=== PATIENT | female | born 1985 | race Caucasian/White ===

== ENCOUNTER 2019-08-07 12:27 | Emergency (ER) | payer OTHER, MEDICAID, SELFPAY ==
[2019-08-07 12:32] VITALS: BP 109/73; PULSE 83; RESP 18; TEMP 36.5; O2SAT 96
--- NOTE | 2019-08-07 12:37 | DI.RAD.S_ITS ---
PROCEDURE: XR CHEST 2V INDICATIONS: chest pain TECHNIQUE: 2 views of the chest were acquired. COMPARISON: None. FINDINGS: Surgical changes and devices: None. Lungs and pleura: Lungs are clear. No pleural effusions or pneumothorax. Mediastinum: Mediastinal contours are normal. Heart size is normal. Bones and chest wall: No suspicious bony abnormalities. Soft tissues appear unremarkable. IMPRESSION: Negative chest. No acute cardiopulmonary process is evident. Dictated by: Orlando Hampton M.D. on 08/07/2019 at 12:05 Approved by: Orlando Hampton M.D. on 08/07/2019 at 12:05
[2019-08-07 13:02] LABS: Add Manual Diff / Slide Review NO; Basophils Absolute Auto 0 /uL (0-100); Basophils Percent Auto 0.5 % (0-2); Eosinophils Absolute Auto 400 /uL (0-450); Eosinophils Percent Auto 5.2 % (2-4); Hematocrit 39.1 % (36-46); Hemoglobin 13.2 g/dL (12.0-16.0); Lymphocytes Absolute Auto 3100 /uL (1100-4500); Lymphocytes Percent Auto 41.4 % (25-40); Mean Corpuscular HGB Conc 33.8 % (30-36); Mean Corpuscular Hemoglobin 29.7 PG (26-34); Mean Corpuscular Volume 87.9 fL (80-100); Monocytes Absolute Auto 600 /uL (0-900); Monocytes Percent Auto 7.6 % (3-14); Neutrophils Absolute Auto 3400 /uL (1500-7000); Neutrophils Percent Auto 45.3 % (50-75); Platelet Count 284 X10^3/uL (150-400); Red Blood Cell Count 4.45 X10^6/uL (4.0-5.2); White Blood Cell Count 7.5 X10^3/uL (4.5-11.0)
[2019-08-07 13:07] LABS: INR 0.9 (0.9-1.3); Prothrombin Time 10.8 SECONDS (10.1-12.7)
[2019-08-07 13:10] LABS: PTT Partial Thromboplastin Tim 30 SECONDS (26.4-36.2)
[2019-08-07 13:12] LABS: Alanine Aminotransferase 40 IU/L (<35); Albumin 4.2 g/dL (3.5-5.0); Albumin Globulin Ratio 1.4 (1.0-2.8); Alkaline Phosphatase 75 U/L (38-126); Aspartate Aminotransferase 41 IU/L (14-36); Bilirubin Total 0.3 mg/dL (0.2-1.3); Blood Urea Nitrogen 16 mg/dL (7-17); Calcium 9.8 mg/dL (8.4-10.2); Carbon Dioxide 29 mmol/L (22-32); Chloride 98 mmol/L (98-107); Creatine Kinase 102 U/L (30-135); Estimated Glomerular Filt Rate > 60.0 mL/min (>60); Glucose 127 mg/dL (70-100); HEMOLYSIS < 15 (0-50); Lipase 150 U/L (23-300); Magnesium 1.7 mg/dL (1.6-2.3); Potassium 3.6 mmol/L (3.4-5.1); Sodium 137 mmol/L (137-145); Total Protein 7.2 g/dL (6.3-8.2)
[2019-08-07 13:24] LABS: Troponin I < 0.012 ng/mL (0.01-0.034)
[2019-08-07 13:27] LABS: CKMB % Relative Index 1.4 % (1.5-5.0); Creatine Kinase MB 1.45 ng/mL (<2.37)
--- NOTE | 2019-08-07 14:12 | ED.CHESTPAIN ---
HPI - Chest Pain General Chief Complaint: Chest Pain Stated Complaint: High heart rate Time Seen by Provider: 08/07/19 14:06 Source: patient Mode of arrival: Ambulatory Limitations: no limitations History of Present Illness HPI narrative: Patient is a 33-year-old female who presents with heart palpitations and dizziness. 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 She felt like her heart was pounding. She does have a history of hypertension she was able to take her blood pressure which was normal but also noted that her heart rate was about 125. She also feels nauseous. She denies any shortness of breath she did not pass out. She was feeling fine yesterday. She has no fever or cough. She still doesn't feel quite right but blood pressure and heart rate are within normal limits MD complaint: chest pain Duration: constant Onset: during exertion Related Data Home Medications Medication Instructions Recorded Confirmed diclofenac sodium 75 mg PO BID PRN 08/07/19 08/07/19 hydrochlorothiazide 25 mg PO DAILY 08/07/19 08/07/19 lisinopril 40 mg PO DAILY 08/07/19 08/07/19 methocarbamol 500 mg PO TID PRN 08/07/19 08/07/19 prazosin 1 mg PO BEDTIME 08/07/19 08/07/19 Allergies Allergy/AdvReac Type Severity Reaction Status Date / Time No Known Drug Allergies Allergy Verified 08/07/19 12:36 Review of Systems Review of Systems Narrative: GENERAL: Denies chills, fatigue, malaise, fever, sweats, travel HEENT: Denies sinus pain, ear pain, sore throat, difficulty swallowing, neck pain RESPIRATORY: Denies dyspnea, cough, wheezing, hemoptysis, sputum. CARDIOVASCULAR: See HPI GASTROINTESTINAL: Denies nausea, vomiting, abdominal pain, diarrhea, constipation, melena. : Denies dysuria, frequency, incontinence, hematuria, urinary retention, flank pain. MUSCULOSKELETAL: Denies weakness, joint pain, or bony pain SKIN: No rash, no erythema, no pruritus NEUROLOGIC: Denies weakness, dizziness, headache, numbness, change in speech, confusion PSYCHIATRIC: No concerning psychosocial issues. 12 point review of systems is negative except for those stated above and HPI Patient History Medical History Asthma (Acute) Hypertension (Acute) Social History Smoking Status: Former smoker Smoking Status: Former smoker alcohol intake frequency: holidays/special occasions only Substance Use Type: does not use Exam Initial Vital Signs Initial Vital Signs: Vital Signs Temperature 97.7 F 08/07/19 12:32 Pulse Rate 83 08/07/19 12:32 Respiratory Rate 18 08/07/19 12:32 Blood Pressure 109/73 08/07/19 12:32 Pulse Oximetry 96 08/07/19 12:32 GENERAL: Overweight female no acute distress HEENT: Head atraumatic,EOMI, pupils reactive, face symmetric, moist mucous membranes CARDIOVASCULAR: Regular rate and rhythm without murmurs, rubs or gallops. RESPIRATORY: Breath sounds equal bilaterally, no wheezes rales or rhonchi. ABDOMEN: Soft, nontender. Normoactive bowel sounds all 4 quadrants. No guarding or rebound. EXTREMITIES: Normal range of motion, no clubbing or edema. Neurovascularly intact NEUROLOGICAL: Alert and oriented x4.Normal gait and speech. SKIN: Warm, dry, no laceration, no petechiae, no rashes or lesions. Course Orders Ordered: ED Orders 08/07/19 12:37 XR chest 2V Stat EKG-12 Lead Stat 08/07/19 12:55 Complete Blood Count AUTO DIFF Stat Comprehensive Metabolic Panel Stat Lipase Stat Magnesium Stat Partial Thromboplastin Time Stat Prothrombin Time INR Stat Troponin & CK Cardiac Panel Stat Discontinued Medications Ondansetron HCl (Zofran Odt) 4 mg SL NOW ONE Stop: 08/07/19 14:18 Last Admin: 08/07/19 14:41 Dose: 4 mg Documented by: VIDA Vital Signs Vital signs: Vital Signs - 8 hr 08/07/19 12:32 08/07/19 15:09 Temperature 97.7 F Pulse Rate 83 80 Respiratory Rate 18 17 Blood Pressure 109/73 Blood Pressure [Left Arm] 119/80 Pulse Oximetry 96 96 MDM - Chest Pain Lab Data Attestation: I reviewed the patient's lab results. Result diagrams: 08/07/19 12:55 08/07/19 12:55 Labs: Lab Results 08/07/19 08/07/19 08/07/19 Range/Units 12:55 12:55 12:55 WBC 7.5 (4.5-11.0) X10^3/uL RBC 4.45 (4.0-5.2) X10^6/uL Hgb 13.2 (12.0-16.0) g/dL Hct 39.1 (36-46) % MCV 87.9 (80-100) fL MCH 29.7 (26-34) PG MCHC 33.8 (30-36) % RDW 14.0 (11.6-14.8) % Plt Count 284 (150-400) X10^3/uL Neut % (Auto) 45.3 L (50-75) % Lymph % (Auto) 41.4 H (25-40) % [place] % (Auto) 7.6 (3-14) % Eos % (Auto) 5.2 H (2-4) % Baso % (Auto) 0.5 (0-2) % Neut # (Auto) 3400 (7220-4178) /uL Lymph # (Auto) 3100 (4751-7593) /uL [place] # (Auto) 600 (0-900) /uL Eos # (Auto) 400 (0-450) /uL Baso # (Auto) 0 (0-100) /uL PT 10.8 (10.1-12.7) SECONDS INR 0.9 (0.9-1.3) APTT 30 (26.4-36.2) SECONDS Sodium 137 (137-145) mmol/L Potassium 3.6 (3.4-5.1) mmol/L Chloride 98 (98-107) mmol/L Carbon Dioxide 29 (22-32) mmol/L BUN 16 (7-17) mg/dL Creatinine 0.80 (0.52-1.04) mg/dL Estimated GFR > 60.0 (>60) mL/min BUN/Creatinine Ratio 20.0 (6-22) Glucose 127 H (70-100) mg/dL Calcium 9.8 (8.4-10.2) mg/dL Magnesium 1.7 (1.6-2.3) mg/dL Total Bilirubin 0.3 (0.2-1.3) mg/dL AST 41 H (14-36) IU/L ALT 40 H (<35) IU/L Alkaline Phosphatase 75 (38-126) U/L Total Creatine Kinase 102 (30-135) U/L CK-MB (CK-2) 1.45 (<2.37) ng/mL CK-MB (CK-2) Rel Index 1.4 L (1.5-5.0) % Troponin I < 0.012 (0.01-0.034) ng/mL Total Protein 7.2 (6.3-8.2) g/dL Albumin 4.2 (3.5-5.0) g/dL Globulin 3.0 (1.7-4.1) g/dL Albumin/Globulin Ratio 1.4 (1.0-2.8) Lipase 150 (23-300) U/L Imaging Data Chest x-ray: Radiologist's Impression: PROCEDURE: XR CHEST 2V INDICATIONS: chest pain TECHNIQUE: 2 views of the chest were acquired. COMPARISON: None. FINDINGS: Surgical changes and devices: None. Lungs and pleura: Lungs are clear. No pleural effusions or pneumothorax. Mediastinum: Mediastinal contours are normal. Heart size is normal. Bones and chest wall: No suspicious bony abnormalities. Soft tissues appear unremarkable. IMPRESSION: Negative chest. No acute cardiopulmonary process is evident. Dictated by: Orlando Hampton M.D. on 08/07/2019 at 12:05 Approved by: Orlando Hampton M.D. on 08/07/2019 at 12:05 ECG Data Attestation: I personally reviewed and interpreted this ECG as follows: Prior ECG tracings: not available for review Interpretation: Normal sinus rhythm rate 68 p.r. interval 151 QRS [address] elevation depression or T-wave inversions MDM Narrative Medical decision making narrative: The patient blood work EKG chest x-ray overall reassuring. At this time some associated presyncopal episode may or may not be coming down with viral syndrome. Discharge Plan Departure Patient Disposition: Home Clinical Impression: Heart palpitations Discharge Date/Time: 08/07/19 15:12 Instructions: DI for Palpitations Activity Restrictions/Additional Instructions: *You have been diagnosed with heart palpitation *What to do: Blood work EKG chest x-ray are overall reassuring. You may or may not be coming down with a viral syndrome recommend you go home rest and increase her fluid intake *Continue to take medications as directed *Follow up with your primary care provider in 2-3 days *Return to ER if you should have increasing heart palpitations chest pain shortness of breath dizziness passing out or any new, worsening or concerning symptoms Prescriptions: No Action methocarbamol 500 mg tablet 500 mg PO TID PRN (Reason: Muscle Spasm) RF: 0 prazosin 1 mg capsule 1 mg PO BEDTIME RF: 0 diclofenac sodium 75 mg tablet,delayed release (DR/EC) 75 mg PO BID PRN (Reason: arthritis pain) RF: 0 hydrochlorothiazide 25 mg tablet 25 mg PO DAILY RF: 0 lisinopril 40 mg tablet 40 mg PO DAILY RF: 0
[2019-08-07] MEDS: ONDANSETRON 4 MG ODT SL (14:41)
[2019-08-07 15:09] VITALS: BP 119/80; PULSE 80; RESP 17; O2SAT 96
== END 2019-08-07 15:12 | disposition home or self-care (01) ==
PROVIDERS: Emergency Provider Emergency Medicine
DX: R00.2 Palpitations (principal); R42 Dizziness and giddiness; R11.0 Nausea
CPT/HCPCS: 36415; 71046; 80053; 82550; 82553; 83690; 83735; 84484; 85025; 85610; 85730; 93005; 99281; 99285

== ENCOUNTER 2019-08-13 16:46 | Emergency (ER) | payer OTHER, MEDICAID, SELFPAY ==
--- NOTE | 2019-08-13 16:50 | ED.UPPEXIN ---
HPI - Extremity Injury (Upper) General Chief Complaint: Extremity Injury, Lower Stated Complaint: elbow pain from fall Time Seen by Provider: 08/13/19 16:49 Source: patient and EMS Mode of arrival: EMS Limitations: no limitations History of Present Illness HPI narrative: Patient is a 33-year-old female who presents right elbow pain after ground level fall. She went to walk her dog is however dog got away and she fell onto her right elbow. No other injury. She is worried because she previously broke that elbow and required surgery. She has no numbness or tingling she is actually able flex and extend at the elbow and pronate and supinate. She has a small abrasion noted. MD complaint: injury to: right and elbow Onset (ago): minute(s) Related Data Home Medications Medication Instructions Recorded Confirmed diclofenac sodium 75 mg PO BID PRN 08/07/19 08/07/19 hydrochlorothiazide 25 mg PO DAILY 08/07/19 08/07/19 lisinopril 40 mg PO DAILY 08/07/19 08/07/19 methocarbamol 500 mg PO TID PRN 08/07/19 08/07/19 prazosin 1 mg PO BEDTIME 08/07/19 08/07/19 Allergies Allergy/AdvReac Type Severity Reaction Status Date / Time No Known Drug Allergies Allergy Verified 08/07/19 12:36 Review of Systems Review of Systems Narrative: GENERAL: Denies chills,fever HEENT: Denies throat pain RESPIRATORY: Denies dyspnea, cough, wheezing CARDIOVASCULAR: Denies chest pain, palpitations GASTROINTESTINAL: Denies nausea, vomiting MUSCULOSKELETAL: See HPI SKIN: No rash, no laceration, no pruritus NEUROLOGIC: Denies weakness, dizziness, headache, numbness 8 point review of systems is negative except for those stated above and HPI Patient History Medical History Asthma (Acute) Hypertension (Acute) Social History Smoking Status: Former smoker Smoking Status: Former smoker alcohol intake frequency: holidays/special occasions only Substance Use Type: does not use Exam Initial Vital Signs Initial Vital Signs: Vital Signs Temperature 98.2 F 08/13/19 16:52 Pulse Rate 71 08/13/19 16:52 Respiratory Rate 16 08/13/19 16:52 Blood Pressure 147/98 H 08/13/19 16:52 Pulse Oximetry 98 08/13/19 16:52 GENERAL: Overweight well-appearing CARDIOVASCULAR: peripheral pulses in tact, cap refill <2 sec regular rate and rhythm RESPIRATORY: No respiratory distress, speaks in full sentences without difficulty clear bilaterally EXTREMITIES: Normal range of motion, no clubbing or edema. Neurovascularly intact Right elbow small abrasion able to fully flex and extend able to pronate wrist has good distal radial pulse able to move fingers shoulder is not tender who clavicle no step-off NEUROLOGICAL: Cranial nerves II through XII grossly intact. Normal gait and speech. SKIN: Small abrasion noted on right elbow no laceration. Course Orders Ordered: ED Orders 08/13/19 16:50 XR elbow RT min 3V Stat Vital Signs Vital signs: Vital Signs - 8 hr 08/13/19 16:52 08/13/19 17:04 08/13/19 17:05 Temperature 98.2 F 98.2 F 98.2 F Pulse Rate 71 71 71 Respiratory Rate 16 16 16 Blood Pressure 147/98 H 147/98 H 147/98 H Pulse Oximetry 98 98 98 08/13/19 17:54 Temperature Pulse Rate 69 Respiratory Rate 14 Blood Pressure 139/92 H Pulse Oximetry 99 MDM - Extremity Injury (Upper) Imaging Data Extremity x-ray #1: Radiologist's Impression: PROCEDURE: XR ELBOW RT MIN 3V INDICATIONS: pain fall injury TECHNIQUE: 3 views of the elbow were acquired. COMPARISON: None. FINDINGS: Bones: No fractures or dislocations. No suspicious bony lesions. Soft tissues: No elbow joint effusion. No suspicious soft tissue calcifications. IMPRESSION: No displaced fractures are seen on these plain films. If there is focal tenderness, or other clinical concern for a fracture not seen on these images in this patient with a given history of trauma, please consider a dedicated CT or a short-term followup plain film series (in 1-2 weeks) for further evaluation. Dictated by: Micah Fuller M.D. on 08/13/2019 at 16:34 Discharge Plan Departure Patient Disposition: Home Clinical Impression: Strain of elbow, right Qualifiers: Encounter type: initial encounter Qualified Code(s): S46.911A - Strain of unspecified muscle, fascia and tendon at shoulder and upper arm level, right arm, initial encounter Discharge Date/Time: 08/13/19 17:55 Instructions: DI for Elbow Sprain Activity Restrictions/Additional Instructions: *You have been diagnosed with right elbow strain *What to do: At this time for x-rays negative for fracture increase activity as tolerated *Continue to take medications as directed Ibuprofen 800 mg every 8 hours if needed for pain do not take with diclofenac. *Follow up with your primary care provider in 2-3 days *Return to ER if you should have increased pain numbness tingling or any new, worsening or concerning symptoms Prescriptions: No Action methocarbamol 500 mg tablet 500 mg PO TID PRN (Reason: Muscle Spasm) RF: 0 prazosin 1 mg capsule 1 mg PO BEDTIME RF: 0 diclofenac sodium 75 mg tablet,delayed release (DR/EC) 75 mg PO BID PRN (Reason: arthritis pain) RF: 0 hydrochlorothiazide 25 mg tablet 25 mg PO DAILY RF: 0 lisinopril 40 mg tablet 40 mg PO DAILY RF: 0
[2019-08-13 16:52] VITALS: BP 147/98; PULSE 71; RESP 16; TEMP 36.8; O2SAT 98; BMI 35.7
[2019-08-13 17:04] VITALS: BP 147/98; PULSE 71; RESP 16; TEMP 36.8; O2SAT 98; BMI 35.7
[2019-08-13 17:05] VITALS: BP 147/98; PULSE 71; RESP 16; TEMP 36.8; O2SAT 98; BMI 35.7
--- NOTE | 2019-08-13 17:53 | PC.NURSE ---
scraped left elbow when she fell down from her dog pulling on leash. Concerned for fracture due to recent fracture in same location.
[2019-08-13 17:54] VITALS: BP 139/92; PULSE 69; RESP 14; O2SAT 99
== END 2019-08-13 17:55 | disposition home or self-care (01) ==
PROVIDERS: Emergency Provider Emergency Medicine
DX: S46.911A Strain of unspecified muscle, fascia and tendon at shoulder and upper arm level, right arm, initial encounter (principal); W18.30XA Fall on same level, unspecified, initial encounter
CPT/HCPCS: 73080; 99283